=== PATIENT | female | born 1965 | race Hispanic/Latino ===

== ENCOUNTER 2023-09-25 20:29 | Emergency (ER) | payer OTHER ==
[~2023-09-25] VITALS: Ht 157.5 cm; Wt 61.7 kg
[2023-09-26 00:10] VITALS: BP 140/82; PULSE 88; RESP 20; O2SAT 99
== END 2023-09-26 00:30 ==
LOC: EDH 20:29
DX: E11.9 Type 2 diabetes mellitus without complications (principal); I10 Essential (primary) hypertension; N39.0 Urinary tract infection, site not specified; E78.00 Pure hypercholesterolemia, unspecified; Z65.3 Problems related to other legal circumstances; Z85.828 Personal history of other malignant neoplasm of skin
CPT/HCPCS: 82948; 93005